=== PATIENT | female | born 1925 | race Caucasian/White ===

== ENCOUNTER → 2016-08-25 | Outpatient (CLI) | payer OTHER, BC | LOC: FIMAGING 18:29 | PROVIDERS: ATTEND Internal Medicine | DX: M51.86 Other intervertebral disc disorders, lumbar region (principal); M48.06 Spinal stenosis, lumbar region; M43.17 Spondylolisthesis, lumbosacral region; M46.97 Unspecified inflammatory spondylopathy, lumbosacral region ==